=== PATIENT | female | born 1960 | race Caucasian/White ===

== ENCOUNTER 2016-08-21 12:03 | Emergency (ER) | payer SELFPAY ==
[2016-08-21] MEDS ORDERED: SODIUM CHLORIDE 0.9% 1,000 ML IV STA ×2 (12:25)
[2016-08-21] MEDS ORDERED: LIDOCAINE 1%-EPI 1:100,000 20 ML VIAL SQ STA (12:50)
[2016-08-21] MEDS ORDERED: ONDANSETRON 4 MG/2 ML VIAL IVP STA ×2 (12:50→14:05)
--- NOTE | 2016-08-21 13:13 | CT ---
EXAMINATION TYPE: CT brain nestor balderas con DATE OF EXAM: 08/21/2016 12:50 PM COMPARISON: NONE HISTORY: 55-year-old female experienced syncopal episode with fall and blow to back of head, lacerati on at site. Patient complains of headache, nausea, and vomiting. CT DLP: 1175.1 mGycm Automated exposure control for dose reduction was used. Technique: Examination of the head was done in axial plane without intravenous contrast. Coronal and sagittal reconstructions performed. CT of the cervical spine was obtained in axial plane without intravenous injection of contrast mater ial. Coronal and sagittal reformatted images were obtained from the axial views for evaluation of f ractures, spinal alignment and canal. FINDINGS: Head: There is subtle subarachnoid hemorrhage seen in the region of the right frontal lobe, right sylvian f issure, and also superiorly along the left frontal lobe. There may be additional small amount of extr a-axial blood along the left lateral convexity, axial image 23. No midline shift, hydrocephalus, effacement of basal subarachnoid cisterns, or loss of blackwell-white mat ter differentiation. There is a large scalp hematoma with laceration along the parietal convexity on the left without unde rlying calvarial fracture. Mastoid air cells well pneumatized. Orbits and globes are intact. Paranasa l sinuses well pneumatized. Cervical spine: The alignment of the cervical spine is normal on coronal and reformatted images. There is no cranial vertebral abnormality. Fracture of the cervical spine is not seen. There is degenerative disc disease with disc osteophyte complex and uncovertebral joint arthropathy particularly at C5-C6 causing moder ate left neuroforaminal stenosis.. No alex canal compromise. Sagittal and coronal reformatted images confirm above findings. COMBINED IMPRESSION: 1. Small amount of acute subarachnoid blood right frontal region, right sylvian fissure, and superior left frontal lobe. There may be a small amount of additional extra-axial acute hemorrhage along the left lateral convexity. 2. No mass effect or midline shift. 3. No acute fracture or malalignment of the cervical spine. Scattered mild spondylotic change. Findings called to Santiago ASHER in the ER at 1:10 PM.
--- NOTE | 2016-08-21 13:18 | ED ---
General Adult HPI - General Chief complaint: Syncope Stated complaint: Fall Time Seen by Provider: 08/21/16 12:08 Source: patient, family, RN notes reviewed Mode of arrival: EMS Limitations: no limitations - History of Present Illness Initial comments: Patient 55-year-old female who presents emergency room today by EMS, the chief complaint of single episode that occurred just prior to arrival. History provided by daughter at bedside stating they were shopping states that she had her back to her mother and heard a loud noise turnaround mother was down on the ground. She states she was unconscious. Patient states she does not remember much about the fall or anything prior. Patient does remember waking up. She remembers ambulance ride here. Does admit to headache and back of her head. Denies any other complaints currently. Patient denies any recent fever, chills, shortness of breath, chest pain, back pain, abdominal pain, nausea or vomiting, numbness or tingling, dysuria or hematuria, constipation or diarrhea, headaches or visual changes, or any other complaints. - Related Data Home Medications Medication Instructions Recorded Confirmed Zopiclone 7.5 mg PO HS PRN 08/21/16 08/21/16 Allergies Allergy/AdvReac Type Severity Reaction Status Date / Time No Known Allergies Allergy Verified 08/21/16 12:27 Review of Systems ROS Statement: Those systems with pertinent positive or pertinent negative responses have been documented in the HPI. ROS Other: All systems not noted in ROS Statement are negative. Past Medical History Past Medical History: No Reported History History of Any Multi-Drug Resistant Organisms: None Reported Past Surgical History: Tubal Ligation Past Psychological History: No Psychological Hx Reported Smoking Status: Former smoker Past Alcohol Use History: None Reported Past Drug Use History: None Reported General Exam - General Exam Comments Initial Comments: General: The patient is awake and alert, in no distress, and does not appear acutely ill. Currently in cervical collar. Eye: Pupils are equal, round and reactive to light, extra-ocular movements are intact. No nystagmus. There is normal conjunctiva bilaterally. No signs of icterus. Ears, nose, mouth and throat: There are moist mucous membranes and no oral lesions. Neck: The neck is supple, there is no tenderness or JVD. Cardiovascular: There is a regular rate and rhythm. No murmur, rub or gallop is appreciated. Respiratory: Lungs are clear to auscultation, respirations are non-labored, breath sounds are equal. No wheezes, stridor, rales, or rhonchi. Gastrointestinal: Soft, non-distended, non-tender abdomen without masses or organomegaly noted. There is no rebound or guarding present. No CVA tenderness. Bowel sounds are unremarkable. Musculoskeletal: Normal ROM, no tenderness. Strength 5/5. Sensation intact. Pulses equal bilaterally 2+. Neurological: A&O x 3. CN II-XII intact, There are no obvious motor or sensory deficits. Coordination appears grossly intact. Speech is normal. Skin: 2 lacerations running parallel to each other to the left occipital area. Mild venous oozing. First laceration measuring approximately 2 cm. Second laceration measuring approximately 1.5 cm. Psychiatric: Cooperative, appropriate mood & affect, normal judgment. Limitations: no limitations Course Vital Signs 08/21/16 08/21/16 12:05 13:45 Temperature 98.0 F 98.1 F Pulse Rate 81 73 Respiratory 20 16 Rate Blood Pressure 112/65 115/68 O2 Sat by Pulse 96 99 Oximetry EKG Findings - EKG Comments: EKG Findings:: EKG performed at 1216: A 12-lead EKG was performed and interpreted by me as showing the following: Rate is 72, and rhythm is normal sinus. There are normal QRS complexes and normal R-wave progression. ST segments have no elevation or depression, and WA segments appear normal. Procedures - Procedures Initial comment: Patient's laceration site anesthetized locally with 1% lidocaine with epinephrine. 2 lacerations running parallel to each other. First one measuring approximately 2 cm. Second laceration just medial to the first measuring approximately 1.5 cm. First laceration was anesthetized with 1% lidocaine epinephrine. The laceration was then cleansed with Betadine and irrigated with normal saline. The wound was inspected, and there was no evidence of injury to deep structures. No foreign body was noted in the wound. A total of 5 skin magdiel were placed with good approximation. Second lacerationThe skin was anesthetized with 1% lidocaine epinephrine. The laceration was then cleansed with Betadine and irrigated with normal saline. The wound was inspected, and there was no evidence of injury to deep structures. No foreign body was noted in the wound. A total of 5 skin magdiel were placed with good approximation. Also 4-0 nylon used to close middle portion of laceration. A total of 2 sutures placed. Medical Decision Making - Medical Decision Making Case discussed with attending physician Dr. Bedoya. Patient's CT has been reviewed and does show 1. Small amount of acute subarachnoid blood right frontal region, rightsylvian Menard, and superior left frontal lobe. There may be a small amount of additional extra-axial acute hemorrhage along the left lateral convexity. 2. No mass effect or midline shift. 3. No acute fracture or malalignment of the cervical spine. Patient's EKG shows normal sinus rhythm. Patient's labs currently pending. Case was discussed with [facility] ER physician Dr. West who will accept the patient. Patient will be transferred via EMS. Labs are pending at this time scan will be sent along with patient. Patient family aware the plan states understanding. - Lab Data Result diagrams: 08/21/16 13:17 08/21/16 13:17 Lab Results 08/21/16 08/21/16 08/21/16 Range/Units 13:17 13:17 13:17 WBC 10.0 (3.8-10.6) k/uL RBC 5.39 (3.80-5.40) m/uL Hgb 14.8 (11.4-16.0) gm/dL Hct 43.9 (34.0-46.0) % MCV 81.5 (80.0-100.0) fL MCH 27.4 (25.0-35.0) pg MCHC 33.6 (31.0-37.0) g/dL RDW 13.7 (11.5-15.5) % Plt Count 307 (150-450) k/uL Neutrophils % 83 % Lymphocytes % 13 % Monocytes % 3 % Eosinophils % 1 % Basophils % 0 % Neutrophils # 8.3 H (1.3-7.7) k/uL Lymphocytes # 1.3 (1.0-4.8) k/uL Monocytes # 0.3 (0-1.0) k/uL Eosinophils # 0.1 (0-0.7) k/uL Basophils # 0.0 (0-0.2) k/uL PT 10.1 (9.0-12.0) sec INR 1.0 (<1.1) APTT 20.9 L (22.0-30.0) sec Sodium 143 (137-145) mmol/L Potassium 4.4 (3.5-5.1) mmol/L Chloride 105 (98-107) mmol/L Carbon Dioxide 23 (22-30) mmol/L Anion Gap 15 mmol/L BUN 11 (7-17) mg/dL Creatinine 0.78 (0.52-1.04) mg/dL Est GFR (MDRD) Af Amer >60 (>60 ml/min/1.73 sqM) Est GFR (MDRD) Non-Af >60 (>60 ml/min/1.73 sqM) Glucose 146 H (74-99) mg/dL Calcium 9.5 (8.4-10.2) mg/dL Total Bilirubin 0.5 (0.2-1.3) mg/dL AST 22 (14-36) U/L ALT 37 (9-52) U/L Alkaline Phosphatase 70 (38-126) U/L Total Protein 7.5 (6.3-8.2) g/dL Albumin 4.4 (3.5-5.0) g/dL Disposition Clinical Impression: Subarachnoid hemorrhage, Syncope, Scalp laceration Disposition: TRANSFER TO PSYCH HOSP/UNIT Condition: Stable Referrals: Nonstaff,Physician [Primary Care Provider] - 1-2 days Time of Disposition: 13:25 (Transferred by EMS to [facility]) - Out of Hospital Transfer - Req. Specs Out of Hospital Transfer - Requested Specifics: Other Emergency Center ( [facility])
[2016-08-21 13:38] LABS: Basophils % (A) 0 %; CH 27.4; CHCM 33.8; Eosinophils # (A) 0.1 k/uL (0-0.7); Eosinophils % (A) 1 %; HCT 43.9 % (34.0-46.0); HDW 2.79; HGB 14.8 gm/dL (11.4-16.0); Luc # (Auto) 0.06; Luc % (Auto) 1; Lymphocytes # (A) 1.3 k/uL (1.0-4.8); Lymphocytes % (A) 13 %; MCH 27.4 pg (25.0-35.0); MCHC 33.6 g/dL (31.0-37.0); MCV 81.5 fL (80.0-100.0); Mean Platelet Volume 6.8; Monocytes # (A) 0.3 k/uL (0-1.0); Monocytes % (A) 3 %; Neutrophils # (A) 8.3 k/uL (1.3-7.7); Neutrophils % (A) 83 %; RBC 5.39 m/uL (3.80-5.40); RDW 13.7 % (11.5-15.5); WBC (Perox) 9.95
[2016-08-21 13:46] VITALS: RESP 16
[2016-08-21 13:47] LABS: ALT 37 U/L (9-52); AST 22 U/L (14-36); Alkaline Phosphatase 70 U/L (38-126); Anion Gap 15 mmol/L; Blood Urea Nitrogen 11 mg/dL (7-17); Calcium 9.5 mg/dL (8.4-10.2); Carbon Dioxide 23 mmol/L (22-30); Chloride 105 mmol/L (98-107); Glucose 146 mg/dL (74-99); Non-African American GFR(MDRD) >60 (>60 ml/min/1.73 sqM); Potassium 4.4 mmol/L (3.5-5.1); Sodium 143 mmol/L (137-145); Total Bilirubin 0.5 mg/dL (0.2-1.3); Total Protein 7.5 g/dL (6.3-8.2)
--- NOTE | 2016-08-21 13:52 | XR ---
EXAMINATION TYPE: XR chest 1V portable DATE OF EXAM: 08/21/2016 1:46 PM COMPARISON: NONE HISTORY: Pain TECHNIQUE: Single frontal view of the chest is obtained. FINDINGS: There is no focal air space opacity, pleural effusion, or pneumothorax seen. The cardiac silhouette size is within normal limits. The osseous structures are intact. Mild cardiomegaly. IMPRESSION: Mild cardiomegaly..
[2016-08-21 13:54] LABS: Prothrombin Time 10.1 sec (9.0-12.0)
[2016-08-21 13:58] LABS: Creatine Kinase 56 U/L (30-135)
[2016-08-21 14:03] LABS: Partial Thromboplastin Time 20.9 sec (22.0-30.0)
[2016-08-21] MEDS ORDERED: HYDROmorphone 1 MG/ML 1 ML SYRINGE IVP STA (14:05)
[2016-08-21 14:10] LABS: Creatine Kinase MB <0.2 ng/mL (0.0-2.4); Troponin I <0.012 ng/mL (0.000-0.034)
[2016-08-21 14:20] VITALS: BP 110/59; PULSE 76; TEMP 98.2
== END 2016-08-21 14:26 ==
LOC: EC 12:03
DX: S06.6X0A Traumatic subarachnoid hemorrhage without loss of consciousness, initial encounter (principal); S01.01XA Laceration without foreign body of scalp, initial encounter; R55 Syncope and collapse; I51.7 Cardiomegaly; M47.812 Spondylosis without myelopathy or radiculopathy, cervical region; Z87.891 Personal history of nicotine dependence; W01.10XA Fall on same level from slipping, tripping and stumbling with subsequent striking against unspecified object, initial encounter
CPT/HCPCS: 96376 ×2; 12002 ×2; 96361 ×2; 96374 ×2; 96375 ×2; 99285 ×2; 36415; 93005; 80053; 82550; 82553; 84484; 85025; 85610; 85730; 71010; 72125; 70450; J2405; J1170